=== PATIENT | female | born 1985 | race Caucasian/White ===

== ENCOUNTER 2019-06-15 10:07 | Emergency (ER) | payer OTHER ==
[~2019-06-15] VITALS: Ht 152.4 cm; Wt 68.0 kg
--- NOTE | 2019-06-15 11:24 | Diagnostic Imaging Report ---
EXAMINATION: CXR 2 VIEW - HOPD INDICATION: Chest pain COMPARISON: None FINDINGS: LINES/TUBES:None LUNGS:The lungs are well-inflated. No focal consolidation or pulmonary edema. PLEURA:No pleural effusion or pneumothorax. MEDIASTINUM:The cardiomediastinal silhouette appears normal in size and shape. BONES/SOFT TISSUES:No acute osseous injury. ABDOMEN:No free air under the diaphragm. IMPRESSION: No focal pneumonia or pulmonary edema. Signed by: Eddie Reid MD on 06/15/2019 11:21 AM
[2019-06-15] MEDS: CLONIDINE HCL 0.1 MG TAB PO ONE (11:49)
[2019-06-15 12:47] VITALS: BP 135/82
== END 2019-06-15 12:52 | disposition home or self-care (01) ==
LOC: FSED 10:07
DX: R07.89 Other chest pain (principal); R06.02 Shortness of breath; R11.0 Nausea; I10 Essential (primary) hypertension; F90.9 Attention-deficit hyperactivity disorder, unspecified type
CPT/HCPCS: 71046; 80048; 80076; 81025; 82553; 84484; 85025; 93005; 99284